=== PATIENT | male | born 1970 | race African-American/Black ===

== ENCOUNTER 2017-06-13 14:08 | Emergency (ER) | payer SELFPAY ==
[~2017-06-13] VITALS: Ht 182.9 cm; Wt 108.6 kg
[2017-06-13 14:21] VITALS: BP 196/91; PULSE 80; RESP 16; TEMP 97.4; O2SAT 99
[2017-06-13] MEDS ORDERED: ROBA500T PO (15:04)
[2017-06-13] MEDS ORDERED: MEDR4PAK PO (15:04)
--- NOTE | 2017-06-13 15:05 | PD ---
HPI Chief Complaint: Musculoskeletal Complaint Time Seen by Provider: 15:02 Travel History International Travel<30 days: No Contact w/Intl Traveler<30days: No Traveled to known affect area: No History of Present Illness HPI 47-year-old male presents to emergency department complaining of left shoulder and arm pain for 2 months. Patient states that he has noticed some muscle tension neck and upper shoulders and has developed "numbness" in his thumb and index. Pain is located in the left upper trapezius and has a 'knot' in the left scapula. States the pain is aching and mild. Movement of his shoulders increases his pain. Says he has been to acupuncturists and chiropractors without relief and is concerned there is a serious issue. Patient denies trauma or inciting events. PFSH Past Medical History Medical History: Denies Significant Hx Diminished Hearing: No Immunizations Current: Yes Tetanus Vaccination: Unknown Influenza Vaccination: No ?: Not Past Surgical History Surgical History: No Previous Surgery Social History Alcohol Use: No Tobacco Use: Yes Substance Use: No Allergies-Medications (Allergen,Severity, Reaction): Coded Allergies: No Known Allergies (Unverified , 06/13/17) Reported Meds & Prescriptions Reported Meds & Active Scripts Active Robaxin (Methocarbamol) 500 Mg Tab 500 Mg PO TID 3 Days Medrol Dosepak (Methylprednisolone) 4 Mg Dspk 4 Mg PO DIRECTED Per Pharmacist direction Review of Systems Except as stated in HPI: all other systems reviewed are Neg Physical Exam Narrative GENERAL: Well-nourished, well-developed patient. SKIN: Focused skin assessment warm/dry. HEAD: Normocephalic. EYES: No scleral icterus. No injection or drainage. NECK: Supple, nontender. No meningeal signs. Trachea midline. No JVD or lymphadenopathy. No midline tenderness CARDIOVASCULAR: Regular rate and rhythm without murmurs, gallops, or rubs. RESPIRATORY: Breath sounds equal bilaterally. No accessory muscle use. MUSCULOSKELETAL: No cyanosis, or edema. Right shoulder- significant muscle spasms to the medial aspect of right scapula and upper trapezius, full range of motion of shoulder and elbow. No deformities or ecchymosis. BACK: No CVA tenderness. No rash. No point tenderness on palpation of the spine. Data Data Last Documented VS Vital Signs Date Time Temp Pulse Resp B/P (MAP) Pulse Ox O2 Delivery O2 Flow Rate FiO2 06/13/17 14:21 97.4 80 16 196/91 (126) 99 Orders Orders Ed Discharge Order (06/13/17 15:05) [facility] Medical Decision Making Medical Screen Exam Complete: Yes Emergency Medical Condition: Yes Differential Diagnosis Right shoulder contusion, muscle spasm, rotator cuff injury Narrative Course 47-year-old male presents to emergency department complaining of left shoulder and arm pain for 2 months. Patient states that he has noticed some muscle tension neck and upper shoulders and has developed "numbness" in his thumb and index. Pain is located in the left upper trapezius and has a 'knot' in the left scapula. States the pain is aching and mild. Movement of his shoulders increases his pain. Says he has been to acupuncturists and chiropractors without relief and is concerned there is a serious issue. Patient denies trauma or inciting events. Vital signs stable Physical exam findings consistent with muscle spasms to the right shoulder with radiculopathy into the arm. Negative Tinel's, negative Phalen sign. Although patient claims that he has numbness in his thumb and index finger, he was Neurovascularly intact. I suspect a cubital tunnel syndrome versus brachial plexus syndrome Patient will be given a muscle relaxer and Medrol Dosepak for radicular symptoms. I advised patient to follow up with his primary care physician for further treatment and evaluation. Consider neurology. Return to the emergency department for worsening or persistent symptoms. Diagnosis Primary Impression: Muscle spasm Additional Impression: Radiculopathy Qualified Codes: M54.12 - Radiculopathy, cervical region Referrals: [facility] Neurologist Orthopedist Additional Instructions: Use ice or heat for symptom relief. Elevate the joint above the heart to reduce swelling. If symptoms persist or worsen, return to the emergency department. Follow up with your primary care physician within 2 days. Scripts Methocarbamol (Robaxin) 500 Mg Tab 500 MG PO TID for Muscle Spasm for 3 Days, TAB 0 Refills Prov: Penny Cespedes 06/13/17 Methylprednisolone Dosepak (Medrol Dosepak) 4 Mg Dspk 4 MG PO DIRECTED, #1 DSPK 0 Refills Per Pharmacist direction Prov: Penny Cespedes 06/13/17 Disposition: 01 DISCHARGE HOME Condition: Stable Penny Cespedes Jun 13, 2017 15:05
== END 2017-06-13 15:12 | disposition home or self-care (01) ==
LOC: PHEFT 14:08
DX: M54.12 Radiculopathy, cervical region (principal); M62.838 Other muscle spasm; Z72.0 Tobacco use; Z79.899 Other long term (current) drug therapy
CPT/HCPCS: 99284